=== PATIENT | male | born 1970 | race Native Hawaiian/Other Pacific Islander ===

== ENCOUNTER 2016-10-01 22:57 | Outpatient (CLI) | payer OTHER | END 2016-10-01 23:02 | disposition short-term general hospital (02) | LOC: AMB 22:57 → EDBD 22:57 → AMB 23:02 | DX: S00.11XA Contusion of right eyelid and periocular area, initial encounter (principal); S00.83XA Contusion of other part of head, initial encounter; H53.8 Other visual disturbances; Y04.2XXA Assault by strike against or bumped into by another person, initial encounter; Y92.89 Other specified places as the place of occurrence of the external cause | CPT/HCPCS: A0425; A0429 ==

== ENCOUNTER 2016-10-02 03:40 | Outpatient (CLI) | payer OTHER | END 2016-10-02 05:10 | disposition short-term general hospital (02) | LOC: AMB 03:40 → EDBD 03:40 → AMB 05:10 | DX: H54.7 Unspecified visual loss (principal); S01.111A Laceration without foreign body of right eyelid and periocular area, initial encounter; F10.129 Alcohol abuse with intoxication, unspecified; S00.81XA Abrasion of other part of head, initial encounter; S00.83XA Contusion of other part of head, initial encounter; M54.9 Dorsalgia, unspecified; Y04.2XXA Assault by strike against or bumped into by another person, initial encounter; Y92.009 Unspecified place in unspecified non-institutional (private) residence as the place of occurrence of the external cause | CPT/HCPCS: A0425; A0429 ==

== ENCOUNTER 2017-01-01 20:42 | Emergency (ER) | payer OTHER ==
[~2017-01-01] VITALS: Ht 172.7 cm; Wt 67.1 kg
[2017-01-02 00:16] VITALS: BP 126/83; TEMP 97.7
== END 2017-01-02 00:17 | disposition home or self-care (01) ==
LOC: ED 20:42
DX: S00.12XA Contusion of left eyelid and periocular area, initial encounter (principal); S43.52XA Sprain of left acromioclavicular joint, initial encounter
CPT/HCPCS: 99283

== ENCOUNTER 2017-04-03 21:41 | Outpatient (CLI) | payer OTHER | END 2017-04-03 21:45 | disposition short-term general hospital (02) | LOC: AMB 21:41 | DX: M54.2 Cervicalgia (principal); Y04.2XXA Assault by strike against or bumped into by another person, initial encounter; Y92.098 Other place in other non-institutional residence as the place of occurrence of the external cause | CPT/HCPCS: A0425; A0429 ==

== ENCOUNTER 2017-04-03 21:48 | Emergency (ER) | payer OTHER ==
[~2017-04-03] VITALS: Ht 172.7 cm; Wt 71.7 kg
[2017-04-03 21:52] VITALS: BP 145/82; TEMP 98.9
== END 2017-04-03 23:41 | disposition home or self-care (01) ==
LOC: ED 21:48
DX: S09.90XA Unspecified injury of head, initial encounter (principal); M54.2 Cervicalgia; Y04.2XXA Assault by strike against or bumped into by another person, initial encounter
CPT/HCPCS: 99282